=== PATIENT | female | born 1950 | race Two or more races ===

== ENCOUNTER 2025-06-23 04:52 | Emergency (ER) | payer MEDICAID, SELFPAY ==
[2025-06-23 05:16] VITALS: BP 142/84; PULSE 72; RESP 19; TEMP 36.7; O2SAT 98
--- NOTE | 2025-06-23 05:22 | XR_ITS ---
EXAMINATION: Lumbar spine 3 views TECHNIQUE: AP lateral: Lateral lower lumbar spine 3 views Date and time: June 23, 2025, 0522 hours INDICATIONS: Low back pain beginning 3 days FINDINGS: Lumbar dextroscoliosis 10 degrees Diffuse lumbar disc narrowing moderate to advanced L4-L5, L5-S1 Moderate lumbar spondylosis No lumbar fracture No spondylolisthesis IMPRESSION: Diffuse lumbar degenerative disc disease, moderate to advanced L4-L5, L5-S1
--- NOTE | 2025-06-23 05:22 | PD.EDRME ---
Rapid Medical Screening Exam RME Arrival date/time: 06/23/25 04:52 This is a case of 74-year-old female who came in in the emergency room due to lower back pain for 3-day patient denies any injury or trauma denies any numbness weakness tingling sensation or incontinence to urine or stool Chief Complaint: Back Pain/Injury Time Seen by Provider: 06/23/25 05:19 Vital signs: Vital Signs Temperature 98.1 F 06/23/25 05:16 Pulse Rate 72 06/23/25 05:16 Respiratory Rate 19 06/23/25 05:16 Blood Pressure 142/84 H 06/23/25 05:16 Pulse Oximetry (%) 98 06/23/25 05:16 Oxygen Delivery Method Room Air 06/23/25 05:16 Exam: Mild to moderate tenderness on L1 L5 no crepitation no deformity no redness no swelling ROM is limited due to pain neurovascular intact Clinical Impression: Lower back pain
--- NOTE | 2025-06-23 06:27 | EDNOTE_ITS ---
ED Back Injury Pain RME/HPI General Chief Complaint: Back Pain/Injury Stated Complaint: LOWER BACK PAIN Time Seen by Provider: 06/23/25 05:19 Source: patient Arrival date/time: 06/23/25 04:52 74-year-old female with no known medical history presents to the emergency room with a chief complaint of lumbar back pain x 3 days Mode of arrival: ambulatory Limitations: no limitations RME / HPI RME / HPI Narrative: 06/23/25 04:52 This is a case of 74-year-old female who came in in the emergency room due to lower back pain for 3-day patient denies any injury or trauma denies any numbness weakness tingling sensation or incontinence to urine or stool Exam: Mild to moderate tenderness on L1 L5 no crepitation no deformity no redness no swelling ROM is limited due to pain neurovascular intact Impression: Lower back pain Related Data Previous Rx's ?Medication ?Instructions ?Recorded ibuprofen 600 mg tablet 600 mg PO Q8H PRN fever or p ain 06/23/25 #20 tabs Allergies Allergy/AdvReac Type Severity Reaction Status Date / Time No Known Allergies Allergy Verified 06/23/25 04:55 Review of Systems Review of Systems Systems Reviewed: All systems reviewed, normal except as documented Constitutional Constitutional: Reports system reviewed and no additional complaints, except as documented, Denies fatigue, Denies fever(s), Denies headache(s) and Denies weakness Eyes Eyes: Reports system reviewed and no additional complaints, except as documented, Denies blurry vision and Denies change in vision ENT Ears, Nose, Mouth, and Throat: Reports system reviewed and no additional complaints, except as documented, Denies otalgia, Denies headache(s), Denies nasal congestion, Denies throat swelling and Denies vertigo Cardiovascular Cardiovascular: Reports system reviewed and no additional complaints, except as documented, Denies chest pain, Denies dyspnea and Denies dyspnea on exertion Respiratory Respiratory: Reports system reviewed and no additional complaints, except as documented, Denies chest congestion, Denies cough, Denies dyspnea, Denies dyspnea on exertion and Denies wheezing Gastrointestinal Gastrointestinal: Reports system reviewed and no additional complaints, except as documented, Denies abdominal pain, Denies cramping, Denies nausea and Denies vomiting Genitourinary Genitourinary: Reports system reviewed and no additional complaints, except as documented Musculoskeletal Musculoskeletal: Reports system reviewed and no additional complaints, except as documented, Reports arthralgias and Reports back pain Integumentary/Breasts Skin/Breast: Reports system reviewed and no additional complaints, except as documented and Denies wounds Neurologic Neurologic: Reports system reviewed and no additional complaints, except as documented, Denies confusion, Denies headache(s), Denies lack of coordination, Denies vertigo and Denies weakness Psychiatric Psychiatric: Reports system reviewed and no additional complaints, except as documented, Denies anxiety, Denies confusion, Denies depression, Denies paranoia, Denies suicidal ideation and Denies tactile hallucinations Endocrine Endocrine: Reports system reviewed and no additional complaints, except as documented and Denies fatigue Hematologic/Lymphatic Hematologic/Lymphatic: Reports system reviewed and no additional complaints, except as documented and Denies lymphadenopathy Allergic/Immunologic Allergic/Immunologic: Reports system reviewed and no additional complaints, except as documented, Denies throat swelling, Denies urticaria and Denies wheezing ED Exam General Limitations: Present no limitations General appearance: Present alert and in no apparent distress Head Head exam: Present atraumatic Eye Eye exam: Present normal appearance, PERRL and EOMI ENT ENT exam: Present normal exam, normal oropharynx and mucous membranes moist Neck Neck exam: Present normal inspection, full ROM and trachea midline Chest Chest inspection: Present normal inspection and symmetric chest wall rise Respiratory Respiratory exam: Present normal lung sounds bilaterally Cardiovascular Cardiovascular exam: Present regular rate, normal rhythm and normal heart sounds Abdominal Exam Abdominal exam: Present soft and normal bowel sounds Extremities Exam Extremities exam: Present normal inspection and full ROM Back Exam Back exam: Present normal inspection, full ROM, tenderness and vertebral tenderness; Absent CVA tenderness (R) or CVA tenderness (L) Back 1 view image: 2 1. Tenderness to the lumbar back with palpation. No CVA tenderness Neurological Exam Neurological exam: Present alert, oriented X3 and CN II-XII intact Psychiatric Psychiatric exam: Present normal affect and normal mood Skin Skin exam: Present warm, dry, intact and normal color Course Quality Measures none Orders Category Date Time Status XR lumbar spine 2-3V Stat Exams 06/23/25 05:22 Completed Ketorolac Inj [Toradol Inj] Med 06/23/25 06:35 Discontinued 30 mg IM X1 ONE Vital Signs Vital signs: Vital Signs Temperature 98.1 F 06/23/25 05:16 Pulse Rate 72 06/23/25 05:16 Respiratory Rate 19 06/23/25 05:16 Blood Pressure 142/84 H 06/23/25 05:16 Pulse Oximetry (%) 98 06/23/25 05:16 Oxygen Delivery Method Room Air 06/23/25 05:16 Back Pain / Injury MDM Narrative MDM Narrative:: 74-year-old female with no known medical history presents to the emergency room with a chief complaint of lumbar back pain x 3 days Patient is hemodynamically stable and in no apparent distress Physical examination shows tenderness to the patient's lumbar area of the patient's spine. The patient denies any saddle anesthesia or any loss of bowel or bladder function. X-ray of the lumbar spine was completed and shows degenerative disc disease moderate to advanced in L4-L5, L5-S1. The patient was educated to follow-up with her primary care provider Patient was discharged and educated to follow-up with primary care provider in the next 24 to 48 hours and return to the emergency room for any evidence of worsening signs or symptoms Patient data External records reviewed:: [facility] previous records Clinical information provided by:: patient Social determinants that could affect healthcare access:: none Patient has the following chronic illnesses:: No chronic illness How is presenting disease/condition affected by chronic disease/condition?: no chronic disease Evaluation data The following diagnostics were reviewed and interpreted by me:: lab results and radiology exam(s) Lab and/or radiology exams considered but not ordered:: Labs and radiology exams considered and ordered Interpretation Summary: Lumbar [id number]: Lumbar dextroscoliosis 10 degrees Diffuse lumbar disc narrowing moderate to advanced L4-L5, L5-S1 Moderate lumbar spondylosis No lumbar fracture No spondylolisthesis IMPRESSION: Diffuse lumbar degenerative disc disease, moderate to advanced L4-L5, L5-S1 Medications / Prescriptions Medications or Prescriptions considered but not ordered:: No medication given Medication administrations:: Medication Administration History Discontinued Medications Ketorolac Tromethamine (Ketorolac Inj 60 Mg/2 Ml Vial) 30 mg IM X1 ONE Stop: 06/23/25 06:36 Last Admin: 06/23/25 06:46 Dose: 30 mg Documented By: AMERICA No medication given Consultations Consultation(s) initiated? (list below): No Diagnosis Differential diagnosis back pain/injury: lumbar radiculopathy, strain of lumbar region, thoracic back pain and other (Degenerative disc disease) Most likely diagnosis given after review of the tests above:: Degenerative disc disease Admission Indicated Admission indicated?: not indicated Admission Request Was there a request for admission?: No Disposition Plan Disposition Plan: Discharge Discharge Attestation Discharge Attestation: The patient and all family members were given an opportunity to ask questions and understood the discharge instructions. Discharge instructions specifically effects, indications for sooner follow up or return to the emergency department, and the expected course of current diagnosis. Patient condition: Stable Discharge Plan Plan Patient Disposition: HOME (Self Care) Discharge Disposition comment: Stable Prescriptions/Referrals Prescriptions/Med Rec: New ibuprofen 600 mg tablet 600 mg PO Q8H PRN (Reason: fever or pain) Qty: 20 0RF Problem List Clinical Impression: Degenerative disc disease, Strain of lumbar region Patient/Caregiver Discharge Instructions Education Materials: ED Back Sprain/Strain Additional Instructions: Por favor, consulte con aden m?dico de cabecera en las pr?ximas 24 a 48 horas. Se realiz? candy radiograf?a de aden columna lumbar que muestra enfermedad discal degenerativa. No hay deformidad importante ni fractura aguda evidente. Se envi? el medicamento a aden farmacia; rec?jalo y t?kolb seg?n las indicaciones. Si observa cualquier signo de empeoramiento de los signos o s?ntomas, acuda inmediatamente a urgencias. Print Language: Kazakh Stand Alone Forms: Daphney Award Info., Work/School Release, Patient Portal Info Letter PA/JUWAN Supervising Physician PA/JUWAN Supervising Physician: Dr. López
[2025-06-23] MEDS: KETOROLAC INJ 60 MG/2 ML VIAL 30 MG IM (06:46)
== END 2025-06-23 06:50 | disposition home or self-care (01) ==
PROVIDERS: Emergency Provider Emergency Medicine; PCP Physician Assistant
DX: S39.012A Strain of muscle, fascia and tendon of lower back, initial encounter (principal); M51.360 Other intervertebral disc degeneration, lumbar region with discogenic back pain only; X58.XXXA Exposure to other specified factors, initial encounter
CPT/HCPCS: 72100; 96372; 99283; J1885